=== PATIENT | female | born 1980 | race Asian ===

== ENCOUNTER 2018-04-20 09:22 | Emergency (ER) | payer MEDICAID ==
[~2018-04-20] VITALS: Ht 154.9 cm; Wt 44.0 kg
[2018-04-20 09:28] VITALS: BP 141/84
[2018-04-20] MEDS ORDERED: PENI500T2 PO (10:22)
[2018-04-20] MEDS ORDERED: ONDA8TAB9 PO (10:22)
[2018-04-20] MEDS ORDERED: MORP15TA PO (10:22)
[2018-04-20] MEDS ORDERED: penicillin V potassium 500mg tablet PO ONE (10:25)
[2018-04-20] MEDS ORDERED: acetaminophen 325mg tablet PO ONE (10:25)
== END 2018-04-20 10:47 | disposition home or self-care (01) ==
LOC: ER 09:23
DX: K04.7 Periapical abscess without sinus (principal); K08.89 Other specified disorders of teeth and supporting structures; Z90.89 Acquired absence of other organs; Z88.1 Allergy status to other antibiotic agents
CPT/HCPCS: 99283